=== PATIENT | male | born 2000 | race Caucasian/White ===

== ENCOUNTER 2018-06-04 11:44 | Emergency (ER) | payer OTHER, SELFPAY ==
[2018-06-04] MEDS ORDERED: Adacel (T-DAP) 0.5 ML SYRINGE ONE (12:07)
[2018-06-04] MEDS ORDERED: Lidocaine 1% PF 5 ML VIAL ONE (12:29)
--- NOTE | 2018-06-04 12:58 | RAD ---
RADIOGRAPH LEFT FOREARM TWO VIEWS: HISTORY: A 18-year-old male status post laceration to forearm. FINDINGS: No subcutaneous emphysema or radiopaque foreign body. No fracture of the radius or ulna. IMPRESSION: Negative. POS: MK
[2018-06-04] MEDS ORDERED: Bacitracin Zinc 1 Packet ONE (13:05)
== END 2018-06-04 13:08 | disposition home or self-care (01) ==
LOC: ERS 11:44
DX: S41.112A Laceration without foreign body of left upper arm, initial encounter (principal); F17.290 Nicotine dependence, other tobacco product, uncomplicated; W26.8XXA Contact with other sharp object(s), not elsewhere classified, initial encounter
CPT/HCPCS: 12002; 90471; 90715; J2001